=== PATIENT | male | born 1980 | race Two or more races ===

== ENCOUNTER 2022-03-28 08:19 | Outpatient (CLI) | payer OTHER | END 2022-03-28 08:25 | disposition home or self-care (01) | LOC: LAB 08:19 | PROVIDERS: ATTEND Radiology Diagnostic Radiology | DX: N50.9 Disorder of male genital organs, unspecified (principal) ==

== ENCOUNTER 2022-04-01 07:10 | Outpatient (CLI) | payer OTHER | END 2022-04-01 07:50 | disposition home or self-care (01) | LOC: MRI 07:10 | DX: N50.9 Disorder of male genital organs, unspecified (principal) | CPT/HCPCS: 72197 ==

== ENCOUNTER 2024-12-17 17:58 | Emergency (ER) | payer OTHER ==
[~2024-12-17] VITALS: Ht 167.6 cm; Wt 85.7 kg
[2024-12-17] MEDS ORDERED: COZAAR100 MG PO (18:11)
[2024-12-17] MEDS ORDERED: GABAPENTIN 600 MG TABLET PO STA (19:43)
[2024-12-17 20:28] LABS: HEMATOCRIT 45.5 % (39.0-48.0); HEMOGLOBIN 15.2 g/dL (13-16.00); MEAN CELL VOLUME 90.5 fL (80.0-100.00); MEAN CORPUSCULAR HEMOGLOBIN 30.3 pg (27.00-32.0); MEAN CORPUSCULAR HGB CONC 33.5 g/dl (32.0-36.0); PLATELET COUNT 276 K/uL (150-450); RED BLOOD COUNT 5.03 M/uL (4.00-6.00)
== END 2024-12-17 21:43 | disposition home or self-care (01) ==
LOC: ER 18:00
PROVIDERS: General Practice
DX: M79.2 Neuralgia and neuritis, unspecified (principal); Z20.822 Contact with and (suspected) exposure to COVID-19

== ENCOUNTER 2025-03-11 20:35 | Emergency (ER) | payer OTHER ==
[~2025-03-11] VITALS: Ht 167.6 cm; Wt 75.3 kg
[~2025-03-11 20:35] MED LIST: COZAAR100 MG PO
[2025-03-11] MEDS ORDERED: CARAFATE1 GM (20:48)
[2025-03-11 21:55] LABS: BASO % 0.9 % (0.1-1.2); EOS # 0.15 (0.04-0.54); EOS % 2.1 % (0.7-7.0); HEMATOCRIT 38.9 % (40.1-51.0); HEMOGLOBIN 13.7 g/dL (13.7-17.5); LYMPH # 1.78 (1.18-3.74); LYMPH % 25.4 % (19.3-53.1); MEAN CORPUSCULAR HEMOGLOBIN 30.2 pg (25.6-32.2); MONO # 0.59 (0.24-0.82); MONO % 8.4 % (4.7-12.5); NEUT # 4.41 (1.56-6.13); NEUT % 63.1 % (34.0-71.1); PLATELET COUNT 300 K/uL (163-369); RED BLOOD COUNT 4.54 M/uL (4.63-6.08); RED CELL DISTRIBUTION WIDTH 12.6 % (11.6-14.4)
[2025-03-11 22:21] LABS: ABG PH 7.402 (7.35-7.45); ABG pCO2 43.1 mmHg (35-45); BASE EXCESS 1.2 mmol/l; BICARBONATE 26.2 mmol/l (23-25); Tco2 27.5 mmol/l
[2025-03-11 22:25] LABS: CALCIUM 8.5 mg/dL (8.5-10.1); CREATININE SERUM 1.19 mg/dL (0.70-1.30); GFR 66.41; POTASSIUM 3.95 mEq/L (3.5-5.1)
[2025-03-11] MEDS ORDERED: hydrOXYzine PAMOATE 25 MG CAPSULE PO STA (22:31)
[2025-03-11] MEDS ORDERED: hydrOXYzine PAMOATE 25 MG CAPSULE PO ONE (22:33)
[2025-03-11 22:37] LABS: allen test SATISFACTORY; mode ROOM AIR; o2 21 %; puncture site RADIAL LEFT
== END 2025-03-11 22:54 | disposition home or self-care (01) ==
LOC: ER 20:41
PROVIDERS: General Practice
DX: R06.02 Shortness of breath (principal)

== ENCOUNTER 2025-09-25 18:50 | Emergency (ER) | payer OTHER ==
[~2025-09-25] VITALS: Ht 167.6 cm; Wt 74.4 kg
[~2025-09-25 18:50] MED LIST changes: +CARAFATE1 GM
[2025-09-25] MEDS ORDERED: DEXAMETHASONE SODIUM PHOSPHATE 4 MG/ML VIAL IM ONE (20:30)
[2025-09-25] MEDS ORDERED: KETOROLAC TROMETHAMINE 60 MG VIAL IM ONE (20:30)
[2025-09-25 21:56] LABS: URINE APPEARANCE Clear; URINE BILIRRUBIN Negative (NEGATIVE); URINE BLOOD Negative; URINE COLOR Yellow; URINE GLUCOSE Negative (NEGATIVE); URINE KETONE Negative (NEGATIVE); URINE LEUKOCYTE Negative; URINE NITRATE Negative; URINE PROTEIN Negative (NEGATIVE); URINE UROBILINOGEN 0.2 E.U./dl
[2025-09-25 21:56] LABS: COVID-19 AG NEGATIVE (NEGATIVE)
[2025-09-25 22:00] LABS: URINE BACTERIA 10.7 uL (0.0-1933); URINE CAST 0.00 uL (0.0-1.40); URINE EPITHELIAL CELLS 0.3 uL (0.0-38.8); URINE RBC 0.5 uL (0.0-20.8); URINE WBC 0.7 uL (0.0-23.2)
[2025-09-25 23:39] LABS: BASO % 1.3 % (0.1-1.2); EOS # 0.16 (0.04-0.54); EOS % 2.6 % (0.7-7.0); LYMPH # 1.86 (1.18-3.74); LYMPH % 30.2 % (19.3-53.1); MEAN PLATELET VOLUME 9.30 fl (9.4-12.4); MONO # 0.36 (0.24-0.82); MONO % 5.8 % (4.7-12.5); NEUT # 3.69 (1.56-6.13); NEUT % 59.9 % (34.0-71.1); RED CELL DISTRIBUTION WIDTH 12.4 % (11.6-14.4)
[2025-09-25 23:56] LABS: INR 1.11
[2025-09-26 00:10] LABS: ALT/SGPT 29.0 U/L (12-78); AST/SGOT 14.0 U/L (15-37); BILIRUBIN TOTAL 1.0 mg/dL (0.3-1.2); BUN CREA RATIO 20.0 (7.0-25.0); CREATININE SERUM 0.91 mg/dL (0.70-1.30); GFR 90.51; GLOBULINA 3.3 G/DL (2.4-3.5); GLUCOSE FASTING 94.0 mg/dL (65-100); OSMOLALITY SERUM 285.0 MOSM/KG (275-295)
[2025-09-26] MEDS ORDERED: AZITHROMYCIN500 MG PO (00:47)
[2025-09-26] MEDS ORDERED: PEPCID AC20 MG PO (00:47)
[2025-09-26] MEDS ORDERED: MEDROLPACK PO (00:47)
[2025-09-26] MEDS ORDERED: LEVALBUTER0.63 MG/3 IH (00:47)
[2025-09-26] MEDS ORDERED: SINGULAIR10 MG PO (00:47)
== END 2025-09-26 00:51 | disposition home or self-care (01) ==
LOC: ER 18:51
DX: R06.02 Shortness of breath (principal); F41.9 Anxiety disorder, unspecified; Z20.822 Contact with and (suspected) exposure to COVID-19

== ENCOUNTER 2025-10-01 14:16 | Emergency (ER) | payer OTHER ==
[~2025-10-01] VITALS: Ht 167.6 cm; Wt 74.4 kg
[~2025-10-01 14:16] MED LIST changes: +AZITHROMYCIN500 MG PO; +LEVALBUTER0.63 MG/3 IH; +MEDROLPACK PO; +PEPCID AC20 MG PO; +SINGULAIR10 MG PO
[2025-10-01 17:37] LABS: BASO % 0.5 % (0.1-1.2); EOS # 0.07 (0.04-0.54); EOS % 0.6 % (0.7-7.0); LYMPH # 2.84 (1.18-3.74); LYMPH % 25.9 % (19.3-53.1); MEAN PLATELET VOLUME 8.90 fl (9.4-12.4); MONO # 0.77 (0.24-0.82); MONO % 7.0 % (4.7-12.5); NEUT # 7.17 (1.56-6.13); NEUT % 65.5 % (34.0-71.1); RED CELL DISTRIBUTION WIDTH 12.6 % (11.6-14.4)
[2025-10-01 18:02] LABS: INR 1.04
[2025-10-01 18:06] LABS: ALT/SGPT 61.0 U/L (12-78); AST/SGOT 23.0 U/L (15-37); BILIRUBIN TOTAL 0.64 mg/dL (0.3-1.2); BUN CREA RATIO 30.0 (7.0-25.0); CREATININE SERUM 0.88 mg/dL (0.70-1.30); GFR 94.08; GLOBULINA 3.1 G/DL (2.4-3.5); GLUCOSE FASTING 97.0 mg/dL (65-100); OSMOLALITY SERUM 286.0 MOSM/KG (275-295)
== END 2025-10-01 20:11 | disposition home or self-care (01) ==
LOC: ER 14:17
PROVIDERS: General Practice
DX: R06.02 Shortness of breath (principal)